=== PATIENT | female | born 2000 | race Hispanic/Latino ===

== ENCOUNTER 2020-08-21 18:00 | Emergency (ER) | payer OTHER, SELFPAY ==
[~2020-08-21] VITALS: Ht 157.5 cm; Wt 97.4 kg
[~2020-08-21 18:00] MED LIST: Amoxicillin PO; Lortab Elixir PO; ORAPRED PO
[2020-08-21] MEDS ORDERED: TETRACAINE 0.5% OPHTH SOLN 4ML OS ONE (19:15)
[2020-08-21] MEDS ORDERED: FLUORESCEIN OPHTH 1 MG STRIP OS ONE (19:15)
[2020-08-21] MEDS ORDERED: PRED20TA PO (19:43)
[2020-08-21] MEDS ORDERED: KEFL500C17 PO (19:43)
[2020-08-21] MEDS ORDERED: OLOP0.1D OS (19:43)
[2020-08-21] MEDS ORDERED: predniSONE 20 MG TAB PO ONE (19:45)
[2020-08-21] MEDS ORDERED: CEPHALEXIN 500 MG CAP PO ONE (19:45)
[2020-08-21 19:56] VITALS: BP 130/82
== END 2020-08-21 20:09 | disposition home or self-care (01) ==
LOC: M ED 18:00
DX: L03.213 Periorbital cellulitis (principal)

== ENCOUNTER → 2020-11-22 | Outpatient (CLI) | payer SELFPAY ==
[~2020-11-22] MED LIST changes: +KEFL500C17 PO; +OLOP0.1D OS; +PRED20TA PO
== END ==
LOC: M LABSMTC 11:21
PROVIDERS: ATTEND Pediatrics
DX: Z20.822 Contact with and (suspected) exposure to COVID-19 (principal)